=== PATIENT | male | born 1960 | race Caucasian/White ===

== ENCOUNTER 2018-10-05 07:37 | Day surgery (SDC) | payer BC ==
[2018-10-04 08:33] VITALS: BMI 24.3
[~2018-10-05 07:37] MED LIST: LACTATED RINGERS 1,000 ML IV SCH
[2018-10-05 08:13] VITALS: TEMP 98.4
[2018-10-05] MEDS ORDERED: LIDOCAINE 1% INJ 10MG/ML (20 ML MDV) ONE (09:13)
[2018-10-05] MEDS ORDERED: PROPOFOL 10 MG/ML 20 ML VIAL IV ONE (09:13)
--- NOTE | 2018-10-05 09:17 | P.GSHP ---
History of Present Illness H&P Date: 10/05/18 Chief Complaint: Screening colonoscopy This a 58-year-old male presents today for screening colonoscopy. Patient has strong family history of colon cancer with his father having colon cancer. Patient denies a significant GI complaints. Past Medical History Past Medical History: Hyperlipidemia History of Any Multi-Drug Resistant Organisms: None Reported Past Surgical History: Hernia Repair Additional Past Surgical History / Comment(s): colonoscopy Past Anesthesia/Blood Transfusion Reactions: No Reported Reaction Smoking Status: Never smoker - Past Family History Father Family Medical History: Cancer Medications and Allergies Home Medications Medication Instructions Recorded Confirmed Type Multivit-Min/FA/Lycopen/Lutein 1 cap PO DAILY 12/13/16 10/05/18 History [Centrum Silver Men Tablet] Rosuvastatin [Crestor] 20 mg PO HS 12/13/16 10/05/18 History Zolpidem [Ambien] 10 mg PO HS PRN 10/04/18 10/05/18 History Allergies Allergy/AdvReac Type Severity Reaction Status Date / Time No Known Allergies Allergy Verified 10/05/18 08:06 Surgical - Exam Vital Signs Temp Pulse Resp BP Pulse Ox 98.4 F 77 15 131/80 97 10/05/18 08:10 10/05/18 08:10 10/05/18 08:10 10/05/18 08:10 10/05/18 08:10 - General well developed, well nourished, no distress - Eyes PERRL - ENT normal pinna - Neck no masses - Respiratory normal expansion - Cardiovascular Rhythm: regular - Abdomen Abdomen: soft, non tender Assessment and Plan Assessment: Screening colonoscopy Family history: Cancer We'll perform screening colonoscopy
--- NOTE | 2018-10-05 09:28 | P.OP ---
Date of Procedure: 10/05/18 Preoperative Diagnosis: Family history: Cancer Screening colonoscopy Postoperative Diagnosis: Diverticulosis Procedure(s) Performed: Colonoscopy Anesthesia: MAC Surgeon: Martin Sow Pathology: none sent Condition: stable Disposition: PACU Description of Procedure: The patient's placed on the endoscopy table in the lateral position. He received IV sedation. Digital rectal exam was performed which revealed no abnormalities. The flexible colonoscope was then placed patient anus and passed throughout the entire colon. The ileocecal valve was visualized. The cecum, ascending colon appeared normal. In the transverse and descending colon was mild diverticular changes. Scope summer back the rectum and this appeared normal. Scope was withdrawn for patient.
[2018-10-05 09:32] VITALS: RESP 18
[2018-10-05 09:53] VITALS: BP 132/67; PULSE 78
== END 2018-10-05 10:24 | disposition home or self-care (01) ==
LOC: ORWHC2ENDO 07:37
PROVIDERS: ATTEND Surgery
DX: Z12.11 Encounter for screening for malignant neoplasm of colon (principal); Z80.0 Family history of malignant neoplasm of digestive organs; E78.5 Hyperlipidemia, unspecified; Z79.899 Other long term (current) drug therapy; K57.30 Diverticulosis of large intestine without perforation or abscess without bleeding
CPT/HCPCS: J2001; J2704; G0105

== ENCOUNTER → 2020-01-18 | Outpatient (CLI) | payer BC ==
--- NOTE | 2020-01-18 11:03 | MR ---
EXAMINATION TYPE: MR iac wo/w con DATE OF EXAM: 01/18/2020 COMPARISON: None HISTORY: left side hearing loss, left ear pain TECHNIQUE: Multiplanar, multisequence images of the brain and brainstem, small [id number] high-resolution gabby ges through the internal auditory canals is performed without and with IV contrast, utilizing 10 mL i ntravenous Gadavist . FINDINGS: Diffusion weighted images demonstrate no evidence of a recent infarct or other diffusion ab normality. There is no extra-axial fluid collection or significant white matter signal abnormality. The ventricular system and cisternal spaces are normal in size and appearance. The brain volume is age appropriate. Midline structures demonstrate normal morphology. Cerebellopontine angles are normal, there is no ab normal enhancement or evident mass along the internal auditory canals. The craniocervical junction ap pears within normal limits. Post contrast images demonstrate no abnormal enhancement. The dural veno us sinuses appear patent. The visualized sinuses are remarkable for some inflammatory change along th e ethmoid air cells, some mucosal thickening present in the maxillary sinus, and the globes are intac t. IMPRESSION: No evident mass. Mild mucosal disease within the sinuses.
== END | disposition home or self-care (01) ==
LOC: RADMRIMAIN 08:57
PROVIDERS: ATTEND Otolaryngology
DX: H91.92 Unspecified hearing loss, left ear (principal)
CPT/HCPCS: 70553; A9585

== ENCOUNTER → 2020-06-16 | Outpatient (CLI) | payer BC | END | disposition home or self-care (01) | LOC: LABWHC1 12:04 | PROVIDERS: ATTEND Family Medicine | DX: U07.1 COVID-19 (principal) | CPT/HCPCS: U0003; C9803; U0005 ==

== ENCOUNTER → 2020-11-24 | Outpatient (CLI) | payer BC ==
--- NOTE | 2020-11-24 17:07 | XR ---
EXAMINATION TYPE: XR abdomen 2V DATE OF EXAM: 11/24/2020 COMPARISON: NONE HISTORY: Pain TECHNIQUE: One view abdominal series FINDINGS: The osseous structures are intact. The bowel gas pattern is nonspecific. No definite suspicious calc ifications. Overlying bowel content does limit exam. Chronic and remote fracture involving the lower right 10th rib suspected nonunion. IMPRESSION: 1. Nonspecific abdomen. 2. 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
== END | disposition home or self-care (01) ==
LOC: RADXRMAIN 15:36
PROVIDERS: ATTEND Nurse Practitioner Family
DX: R10.9 Unspecified abdominal pain (principal)
CPT/HCPCS: 74019